=== PATIENT | male | born 1975 | race American Indian/Alaskan Native ===

== ENCOUNTER 2020-07-05 17:51 | Emergency (ER) | payer SELFPAY ==
[2020-07-05 18:31] VITALS: BP 164/93
--- NOTE | 2020-07-05 18:49 | Emergency Department Report ---
Chief Complaint: Urogenital-Male Stated Complaint: STD CHECK Time Seen by Provider: 07/05/20 18:43 - HPI History of Present Illness: Patient is a 54-year-old male that presents emergency room with complaints of dysuria and foul odor and penile discharge. Patient states he feels like he has a STD. He states he had STD in the past with same symptoms. Patient states been going on for about 1520 days. Patient states he has not seen a primary care. Patient states that he came here because he wants to be checked out. Patient states pain is 0 out of 10 when he is not urinating. Patient states the pain is mild when he urinates. Patient denies abdominal pain. Patient denies fever or chills. Patient denies back pain. Patient denies flank pain. Patient denies nausea vomiting. Patient denies fever and chills. Patient denies headache. Patient denies blurry vision. Patient denies recent travel. Patient denies recent international travel. Patient denies exposure to the novel coronavirus. Patient denies sick contacts. Patient denies fever and chills. Patient denies cough. Patient denies diarrhea. Patient denies coming in contact with anybody with symptoms of the novel coronavirus. - ROS Review of Systems: 11 systems review of systems done and all were negative except for complaints in the HPI. - Exam Vital Signs: Vital Signs 07/05/20 18:31 Temperature 98.1 F Pulse Rate 95 H Respiratory 18 Rate Blood Pressure 164/93 O2 Sat by Pulse 99 Oximetry Physical Exam: The patient appeared well nourished and normally developed. Vital signs as documented. Head exam is unremarkable. No scleral icterus or corneal arcus noted. Neck is without jugular venous distension, thyromegaly, Lungs are clear to auscultation and percussion. Cardiac exam reveals Rhythm is regular. First and second heart sounds normal. No murmurs, rubs or gallops. Abdominal exam reveals normal bowel sounds, no masses, no organomegaly and no aortic enlargement. Back exam is nontender and no CVA tenderness. MSE screening note: Focused history and physical exam performed. Due to findings the following was ordered: Patient not require any emergency medical service. Patient had medical clearing exam. Patient given resources. ED Medical Decision Making - Medical Decision Making Patient is a 44-year-old male who presents emergency room with complaints of dysuria and penile discharge. Patient had a medical clearing exam. Patient is stable. Patient to be managed as an outpatient. Patient given outpatient resources. - Differential Diagnosis STD, dysuria ED Disposition for MSE Clinical Impression: STD (male), Dysuria Disposition: Z-07 MED SCREENING EXAM-LEFT Is pt being admited?: No Does the pt Need Aspirin: No Condition: Stable Instructions: Dysuria Additional Instructions: Patient to follow-up with primary care in 1 to 3 days. Patient follow-up with health department 1 to 3 days. Patient to rest. Patient to increase water. Patient to avoid sexual activity until cleared by primary care or health departm ent.. Patient to take Tylenol or ibuprofen as needed for pain. Patient to return to the ER if condition worsens, changes or new symptoms arise. Referrals: [facility] [Outside] - [facility] [Provider Group] - 2-3 Days YOLY SALAZAR MD [Staff Physician] - CAPRICE WOLFE MD [Staff Physician] - [facility] Time of Disposition: 18:49
== END 2020-07-05 19:09 | disposition left against medical advice (07) ==
LOC: ED 17:51
DX: A64 Unspecified sexually transmitted disease (principal); Z53.21 Procedure and treatment not carried out due to patient leaving prior to being seen by health care provider